=== PATIENT | male | born 1995 | race Caucasian/White ===

== ENCOUNTER 2023-02-14 22:27 | Emergency (ER) | payer OTHER ==
[~2023-02-14] VITALS: Ht 165.1 cm; Wt 77.1 kg
[2023-02-14 22:34] VITALS: BP 142/87; PULSE 122; RESP 20; TEMP 98.4; O2SAT 98
[2023-02-14 22:44] VITALS: O2SAT 98
[2023-02-14 23:18] VITALS: BP 135/81; PULSE 102; RESP 13; O2SAT 97
== END 2023-02-14 23:18 | disposition home or self-care (01) ==
LOC: MED 22:27
DX: R00.0 Tachycardia, unspecified (principal); V89.2XXA Person injured in unspecified motor-vehicle accident, traffic, initial encounter; Y93.89 Activity, other specified; Y92.410 Unspecified street and highway as the place of occurrence of the external cause; Y99.8 Other external cause status
CPT/HCPCS: 71045; 93005; 99283; Q0092